=== PATIENT | male | born 1950 | race Caucasian/White ===

== ENCOUNTER 2017-07-07 13:13 | Emergency (ER) | payer MEDICAID, SELFPAY ==
[2017-07-07 14:05] VITALS: BP 135/83; PULSE 59; RESP 20; TEMP 98.1; O2SAT 96
[2017-07-07] MEDS ORDERED: Bacitracin 500 Units/gm Oint Foilpak UD TOP ONE (14:51)
[2017-07-07] MEDS ORDERED: Tetanus/Diphtheria Toxoids 0.5 ml Syringe IM ONE ×2 (14:51→15:16)
[2017-07-07] MEDS ORDERED: Naproxen 550 mg Tab PO STA (15:12)
[2017-07-07] MEDS ORDERED: Naproxen 550 mg Tab PO ONE (15:15)
[2017-07-07] MEDS ORDERED: Bacitracin 500 Units/gm Oint Foilpak UD ONE (15:15)
--- NOTE | 2017-07-07 15:51 | RAD ---
PROCEDURE: Radiographs of the right tibia and fibula. HISTORY: right lower leg pain after injury COMPARISON: None available. TECHNIQUE: Frontal and lateral views obtained. FINDINGS: BONES: No fracture or destructive lesion. JOINT SPACES: Unremarkable. OTHER FINDINGS: None. IMPRESSION: Unremarkable radiographs of the right tibia and fibula.
--- NOTE | 2017-07-07 15:51 | RAD ---
PROCEDURE: Right Ankle Radiographs. HISTORY: right ankle pain after injury COMPARISON: None FINDINGS: BONES: Normal. No fracture. JOINTS: Normal. No osteoarthritis. Ankle mortise maintained. Talar dome intact SOFT TISSUES: Normal. OTHER FINDINGS: None. IMPRESSION: Normal right ankle radiographs.
--- NOTE | 2017-07-07 15:58 | C.PDOC ---
History Of Present Illness 67 y/o male presents to the ER complaining of right lower leg pain which began after a hand truck fell on the patient's leg while he was working 2 days ago. Patient is also complaining of right ankle pain. Denies having worsening of pain with ambulation and other injuries. Of note, patient is not UTD with tetanus vaccination. Time Seen by Provider: 07/07/17 14:12 Chief Complaint (Nursing): Abnormal Skin Integrity History Per: Patient History/Exam Limitations: no limitations Onset/Duration Of Symptoms: Days Severity: Moderate Past Medical History Reviewed: Historical Data, Nursing Documentation, Vital Signs Vital Signs: Last Vital Signs Temp 98.1 F 07/07/17 14:00 Pulse 59 L 07/07/17 14:00 Resp 20 07/07/17 14:00 BP 135/83 07/07/17 14:00 Pulse Ox 96 07/07/17 18:41 - Medical History PMH: No Chronic Diseases Surgical History: Cholecystectomy Family History: States: No Known Family Hx - Social History Hx Alcohol Use: No Hx Substance Use: No - Immunization History Hx Tetanus Toxoid Vaccination: Yes Hx Influenza Vaccination: No Hx Pneumococcal Vaccination: No Review Of Systems Except As Marked, All Systems Reviewed And Found Negative. Musculoskeletal: Positive for: Leg Pain (right lower leg pain), Other (right ankle pain) Physical Exam - Physical Exam Appears: Non-toxic, No Acute Distress, Other (comfortable) Skin: Normal Color, Warm, Dry, Ecchymosis (mild ecchymosis to lateral aspect of right mallelous), Other (7 cm abrasion to anterior aspect of right shafer in a vertical orientation with central skin avulsion) Head: Atraumatic, Normacephalic Eye(s): bilateral: Normal Inspection Nose: Normal Oral Mucosa: Moist Neck: Supple Chest: Symmetrical Cardiovascular: Rhythm Regular Respiratory: Normal Breath Sounds, No Rales, No Rhonchi, No Wheezing Extremity: Tenderness (tenderness to palpation to right lower leg and right ankle), No Deformity Pulses: Right Dorsalis Pedis: Normal Neurological/Psych: Oriented x3, Normal Speech ED Course And Treatment O2 Sat by Pulse Oximetry: 96 (RA) Pulse Ox Interpretation: Normal - Other Rad X-Ray - Right Tibia and Fibula X-Ray: Viewed By Me, Read By Radiologist Interpretation: PROCEDURE: Radiographs of the right tibia and fibula. HISTORY : right lower leg pain after injury. COMPARISON: None available. TECHNIQUE: Frontal and lateral views obtained. FINDINGS: BONES: No fracture or destructive lesion. JOINT SPACES: Unremarkable. OTHER FINDINGS: None. IMPRESSION: Unremarkable radiographs of the right tibia and fibula. X- Ray- Right Ankle X-Ray: Viewed By Me, Read By Radiologist Interpretation: PROCEDURE: Radiographs of the right tibia and fibula. HISTORY : right lower leg pain after injury. COMPARISON: None available. TECHNIQUE: Frontal and lateral views obtained. FINDINGS: BONES: No fracture or destructive lesion. JOINT SPACES: Unremarkable. OTHER FINDINGS: None. IMPRESSION: Unremarkable radiographs of the right tibia and fibula. Progress Note: X- Ray - Right Tib/ Fib and X-Ray- Right Ankle ordered and reviewed. Patient given tetanus vaccination and treated with Naproxen PO. Bacitracin and dressing applied by nurse. Patient has been discharged with prescription for Bacitracin and Naproxen. Patient has been instructed to follow up with PMD in 1-2 days. Disposition Counseled Patient/Family Regarding: Studies Performed, Diagnosis, Need For Followup, Rx Given - Disposition Referrals: Ellen Brooks MD [Staff Provider] - [facility] [Outside] Disposition: HOME/ ROUTINE Disposition Time: 16:00 Condition: STABLE Additional Instructions: FOLLOW UP WITH YOUR DOCTOR IN 1-2 DAYS USE MEDICATIONS DIRECTED RETURN TO EMERGENCY ROOM IF SYMPTOMS WORSEN SEGUIMIENTO CON BEAR MDICO EN 1-2 FOFANA USE MEDICAMENTOS SEGN LO INDICADO REGRESE AL SOPHIE DE EMERGENCIA SI LOS SNTOMAS EMPEORAN Prescriptions: Bacitracin OINT 1 applic TOP BID #1 tube Naproxen 375 mg PO BID PRN #20 tablet PRN Reason: pain Instructions: Contusion (DC), Skin Abrasions (DC) Forms: [employer] (Pashto) Print Language: MALTESE - POA Present On Arrival: Falls Or Trauma - Clinical Impression Clinical Impression: Skin abrasion, Contusion - Scribe Statement The provider has reviewed the documentation as recorded by the Avilaibrajat Kraft Provider Attestation: All medical record entries made by the Scribe were at my direction and personally dictated by me. I have reviewed the chart and agree that the record accurately reflects my personal performance of the history, physical exam, medical decision making, and the department course for this patient. I have also personally directed, reviewed, and agree with the discharge instructions and disposition.
== END 2017-07-07 16:02 | disposition home or self-care (01) ==
LOC: C.ER 13:13
DX: S90.01XA Contusion of right ankle, initial encounter (principal); S80.811A Abrasion, right lower leg, initial encounter; W22.8XXA Striking against or struck by other objects, initial encounter; Y92.89 Other specified places as the place of occurrence of the external cause; Y99.0 Civilian activity done for income or pay